=== PATIENT | female | born 1990 | race Asian ===

== ENCOUNTER 2017-03-02 19:32 | Emergency (ER) | payer SELFPAY ==
[~2017-03-02] VITALS: Ht 160 cm; Wt 54.9 kg
[2017-03-02 20:58] LABS: HEMATOCRIT 35.5 % (36.0-46.0); MCH 28.4 PG (29.0-34.0); MCHC 33.5 G/DL (30.0-36.0); MCV 84.7 FL (83-99); PLATELET COUNT 237 K/uL (156-360); RBC DIS.WIDTH-CV 12.5 % (11.8-14.6); RBC DIS.WIDTH-SD 38.4 % (39-53); RED BLOOD COUNT 4.19 M/uL (3.80-5.20); WHITE BLOOD COUNT 10.5 K/uL (4.1-10.2)
[2017-03-02 21:10] LABS: CHLORIDE 106 mEq/L (99-109); POTASSIUM 3.8 mEq/L (3.7-5.4); SODIUM 135 mEq/L (136-147)
[2017-03-02 21:10] LABS: ADD MIUA? YES; BILIRUBIN NEGATIVE; BLOOD MODERATE; COLOR YELLOW ((YELLOW)); GLUCOSE (STRIP) NEGATIVE; KETONES NEGATIVE; LEUKOCYTES LARGE; NITRITE NEGATIVE; PROTEIN (STRIP) 30; SPECIFIC GRAVITY 1.013 (1.000-1.030); UROBILINOGEN 0.2 MG/DL (0.2-1.0)
[2017-03-02 21:12] LABS: GLUCOSE 98 mg/dL (70-99)
[2017-03-02 21:13] LABS: ANION GAP 9 MEQ/L (2-14)
[2017-03-02 21:14] LABS: TOTAL BILIRUBIN 0.6 mg/dL (0.0-1.0)
[2017-03-02 21:16] LABS: ALKALINE PHOSPHATASE 56 IU/L (3-129); GFR ESTIMATE (CALCULATED) > 59 mL/min/
[2017-03-02 21:17] LABS: UREA NITROGEN (BUN) 12 mg/dL (9-23)
[2017-03-02 21:21] LABS: BACTERIA RARE /HPF; EPITHELIAL CELLS RARE /HPF; MUCUS TRACE /LPF; RED BLOOD CELLS 40-50 /HPF (0-5); UCUL ADDED? YES; WHITE BLOOD CELLS TNTC /HPF (0-5)
[2017-03-02 21:25] LABS: QUANTITATIVE HCG < 4.0 MIU/ML
[2017-03-02] MEDS ORDERED: AUGMENTIN875 MG PO (23:59)
[2017-03-02] MEDS ORDERED: NORCO 5/3251 TABLET PO (23:59)
[2017-03-02] MEDS ORDERED: ZOFRAN ODT4 MG PO (23:59)
[2017-03-03 02:41] VITALS: BP 86/59
[2017-03-04] MEDS ORDERED: CIPRO500 MG PO (18:02)
== END 2017-03-04 19:16 | disposition home or self-care (01) ==
LOC: EXP 19:32 → EME 19:32 → EXP 03-03 02:41
DX: N10 Acute pyelonephritis (principal)
CPT/HCPCS: 74176; 80053; 81003; 84702; 85027; 87077; 87086; 87186; 99281; 99285; J0696; J2270; J2405; J7030; J7050